=== PATIENT | male | born 1990 | race Caucasian/White ===

== ENCOUNTER 2016-07-19 11:42 | Emergency (ER) | payer OTHER ==
--- NOTE | 2016-07-19 13:00 | CR ---
EXAMINATION: Right RIBS HISTORY: Pain COMPARISON: None TECHNIQUE: 2 views FINDINGS/IMPRESSION: No displaced rib fracture. No no pleural effusion or pneumothorax. Bone mineral ization is normal.
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
[2016-07-19 13:30] VITALS: BP 119/67
== END 2016-07-19 13:28 | disposition home or self-care (01) ==
LOC: MW.ED 11:42
DX: R07.81 Pleurodynia (principal); F17.210 Nicotine dependence, cigarettes, uncomplicated
CPT/HCPCS: 71100-26-RT; 71100-RT; 99282; 99283